=== PATIENT | male | born 1990 | race Caucasian/White ===

== ENCOUNTER 2023-05-05 05:06 | Emergency (ER) | payer OTHER ==
[~2023-05-05] VITALS: Ht 172.7 cm; Wt 86.2 kg
[~2023-05-05 05:06] MED LIST: KEP500 PO
[2023-05-05 05:14] VITALS: BP 137/85; PULSE 78; RESP 18; TEMP 98.8; O2SAT 100
== END 2023-05-05 05:40 ==
LOC: MED 05:06
DX: Z02.89 Encounter for other administrative examinations (principal); V49.88XA Car occupant (driver) (passenger) injured in other specified transport accidents, initial encounter; Y93.89 Activity, other specified; Y92.89 Other specified places as the place of occurrence of the external cause; Y99.8 Other external cause status
CPT/HCPCS: 99283